=== PATIENT | female | born 1970 | race Caucasian/White ===

== ENCOUNTER 2024-09-21 19:34 | Emergency (ER) | payer MEDICAID ==
[~2024-09-21] VITALS: Ht 165.1 cm; Wt 52.0 kg
[2024-09-21 19:56] VITALS: BP 133/78; PULSE 94; TEMP 96.8; O2SAT 99
[2024-09-21 21:15] LABS: BILIRUBIN,URINE NEGATIVE (Neg); CLARITY,URINE CLEAR (Clear); COLOR,URINE YELLOW (Yellow); GLUCOSE, URINE NEGATIVE (Neg); KETONES,URINE TRACE mg/dl (Neg); LEUKOCYTE ESTERASE ,URINE NEGATIVE (Neg); NITRITES, URINE NEGATIVE (Neg); OCCULT BLOOD,URINE NEGATIVE (Neg); PROTEIN,URINE NEGATIVE (Neg); UA COLLECTION TYPE CLN CATCH MIDSTREAM; UROBILINOGEN,URINE 0.2 E.U/dL (0.2-1.0)
[2024-09-21 21:17] LABS: URINE HCG NEGATIVE (NEG)
[2024-09-21] MEDS ORDERED: iohexol 300mg/ml 100ml inj. ONE (22:01)
[2024-09-21 23:08] LABS: BASOPHILS # (AUTO) 0.1 X10'3 (0-0.2); EOSINOPHILS # (AUTO) 0.3 X10'3 (0-0.9); HEMOGLOBIN 14.8 g/dl (12.0-16.0); LYMPHOCYTES # (AUTO) 2.3 X10'3 (1.1-4.8); MEAN PLATELET VOLUME 8.3 FL (7.4-10.4)
[2024-09-21 23:09] LABS: EOSINOPHILS % (AUTO) 3.5 % (0-6); HEMATOCRIT 43.3 % (35.0-45.0); LYMPHOCYTES % (AUTO) 25.3 % (21-51); MEAN CORPUSCULAR HEMOGLOBIN 30.3 PG (27.0-31.0); MEAN CORPUSCULAR HGB CONC 34.2 g/dL (33.0-36.5); MEAN CORPUSCULAR VOLUME 88.6 FL (78-98); MONOCYTES # (AUTO) 0.5 X10'3 (0-0.9); NEUTROPHILS # (AUTO) 5.8 X10'3 (1.8-7.7); NEUTROPHILS % (AUTO) 64.2 % (42-75); RED BLOOD COUNT 4.89 X10'6 (4.20-5.60); RED CELL DISTRIBUTION WIDTH 14.1 % (11.5-14.5); WHITE BLOOD COUNT 9.1 X10'3 (4.5-11.0)
[2024-09-21 23:27] LABS: PLATELET COUNT 336 X10'3 (140-440)
--- NOTE | 2024-09-21 23:27 | RADIOLOGY REPORT ---
CT OF THE ABDOMEN AND PELVIS WITH CONTRAST. HISTORY: abd pain, rule out bowel obstruction COMPARISON: None TECHNIQUE: Helical axial CT images of the abdomen and pelvis were obtained with intravenous contrast. Multiplanar reformats. One or more of the following radiation dose reduction techniques were used fo r this examination: automated exposure control, adjustment of the mA and/or kV according to patient s ize, use of iterative reconstruction technique. FINDINGS: Mild dependent atelectasis in the imaged lung bases. Liver: Focal hypoattenuation near the falciform ligament may represent an area of fatty infiltration. No other discrete, sizable lesions as visualized. Gallbladder and biliary system: Gallbladder is distended. No sizable, radiopaque cholelithiasis. No b iliary ductal dilatation noted. Pancreas: Negative. Spleen: Negative. Adrenal Glands: Negative. Kidneys and collecting system: No hydroureteronephrosis or sizable, obstructing urinary tract calculi identified. Retroperitoneum: No evidence of abdominal aortic aneurysm. Lymph nodes: No discretely enlarged lymph nodes identified. Bowel: No evidence of small-bowel obstruction at this time. Normal caliber appendix. Moderate volume stool throughout the colon and rectum. No free intraperitoneal air or fluid identified. Pelvis: No sizable bladder calculus. Question mild thickening versus underdistention of the urinary b ladder. Osseous structures: No destructive osseous lesions identified. Degenerative changes of the lower lumb ar spine. IMPRESSION: No evidence of bowel obstruction at this time. Mild thickening versus underdistention of the urinary bladder. Please correlate to exclude UTI/cysti tis. A few other ancillary findings as above.
[2024-09-21 23:37] LABS: ALANINE AMINOTRANSFERASE 21 U/L (12-78); ALBUMIN 3.3 G/DL (3.4-5.0); ALKALINE PHOSPHATASE 88 IU/L (46-116); ANION GAP 10 (8-16); ASPARTATE AMINO TRANSFERASE 18 U/L (10-37); BILIRUBIN,TOTAL 0.3 MG/DL (0.1-1.0); BLOOD UREA NITROGEN 9 MG/DL (7-18); BUN/CREATININE RATIO 10.8 (10.0-20.0); CALCIUM 8.5 MG/DL (8.5-10.1); CHLORIDE 102 MMOL/L (99-107); CREATININE 0.83 MG/DL (0.40-0.90); GLUCOSE 98 MG/DL (70-104); LIPASE 33 U/L (16-77); POTASSIUM 3.8 MMOL/L (3.5-5.1); SODIUM 139 MMOL/L (135-145); TOTAL CARBON DIOXIDE 26.9 MMOL/L (24-32); TOTAL PROTEIN 6.6 G/DL (6.4-8.2); eCRCL 63 ML/MIN; eGFR 71 ML/MIN
--- NOTE | 2024-09-21 23:47 | Physician Documentation ---
History of Present Illness ~ Chief Complaint: Abdominal Pain Stated Complaint: ABDOMINAL PAIN Time Seen by MD: 21:52 Mode of Arrival: Ambulatory HPI Patient is seen today with complaints of generalized abdominal discomfort and pain along with being constipated for two weeks. Patient states she did have a CT scan one week ago where she claims she was told that she had a bowel ob struction. Patient states she has been trying MiraLax at home without any significant success. Patient states she has had some liquid bowel movements including this morning and yesterday but denies any passage of solid stool for a couple of weeks. She denies any fevers or chills or chest pain or shortness of breath or diarrhea. She has no other concern or complaint at this time. Patient denies any opiate use. Medication Reconciliation Allergies: Coded Allergies: No Known Allergies (Unverified , 09/21/24) Review of Systems Constitutional: Denies: chills, fever, weakness Eyes: Denies: pain, blurred vision ENT: Denies: ear pain, nose pain, throat pain, mouth pain Respiratory: Denies: cough, shortness of breath Cardiovascular: Denies: chest pain, palpitations Gastrointestinal: Denies: abdominal pain, nausea, vomiting Genitourinary: Denies: burning, dysuria Female Genitalia: Denies: vaginal discharge, pelvic pain Neurological: Denies: headache, dizziness Musculoskeletal: Denies: pain, swelling Integumentary: Denies: rash, lesions Allergic/Immunologic: Denies: hives, itching Hematologic/Lymphatic: Denies: no symptoms reported Psychiatric: Denies: depression, anxiety Physical Exam Vital Signs: Temperature: 96.8, Source: Temporal, Heart Rate: 94, Respiratory Rate: 16, BP: 133/78, Pulse Oximetry: 99, Weight: 51.950 Physical Exam General: Awake and Alert, no acute distress. HEENT: Conjunctiva pink, Sclera clear, Mucus Membranes moist. Neck: Supple without masses and tenderness. Resp: Unlabored. Lungs clear to auscultation bilaterally. Heart: Regular Rate and rhythm, normal S1 and S2 without murmur, rub or gallop. Abdomen: Soft and non distended no organomegaly, patient has mild diffuse tenderness of the abdomen with more significant tenderness to palpation in the right upper quadrant. I do not appreciate any guarding or rebound tenderness. Patient does have normoactive bowel sounds in all quadrants. Extremities: No cyanosis,clubbing or edema. Skin: Warm and Dry. Progress Results/Orders Results/Orders Orders - MCCLELLANDORINA Ramires PAC Saline Lock (09/21/24 ) Procalcitonin (09/21/24 21:52) Ct Abdomen Pelvis (09/21/24 22:00) Polyethylene Glycol 3350 Pkt (Miralax Pa (09/21/24 23:37) Sennosides/Docusate Sodium Tab (Senna-S (09/21/24 23:37) Completed Orders - DORINA MCCLELLAN PAC Lacticsepsis (09/21/24 21:52) Ct Abdomen Pelvis (09/21/24 22:00) Iohexol 300mg/Ml 100ml Inj. (Omnipaque-3 (09/21/24 22:01) Vital Signs 09/21/24 09/21/24 19:56 23:02 Temp 96.8 Pulse 94 Resp 15 16 B/P (MAP) 133/78 Pulse Ox 99 Laboratory Tests Test 09/21/24 20:55 09/21/24 22:53 Urine Specimen Description Cln catch midstream Urine Color Yellow Urine Clarity Clear Urine pH 6.0 Urine Specific [place] 1.020 Urine Protein Negative Urine Glucose (UA) Negative Urine Ketones Trace H Urine Occult Blood Negative Urine Nitrite Negative Urine Bilirubin Negative Urine Urobilinogen 0.2 Urine Leukocyte Esterase Negative Urine Culture Indicated Not ind Volume Urine Centrifuged 10 ml Urine HCG, Qualitative Negative Urine Comment White Blood Count 9.1 Red Blood Count 4.89 Hemoglobin 14.8 Hematocrit 43.3 Mean Corpuscular Volume 88.6 Mean Corpuscular Hemoglobin 30.3 Mean Corpuscular Hemoglobin Concent 34.2 Red Cell Distribution Width 14.1 Platelet Count 336 Mean Platelet Volume 8.3 Neutrophils (%) (Auto) 64.2 Lymphocytes (%) (Auto) 25.3 Monocytes (%) (Auto) 6.0 Eosinophils (%) (Auto) 3.5 Basophils (%) (Auto) 1.0 Neutrophils # (Auto) 5.8 Lymphocytes # (Auto) 2.3 Monocytes # (Auto) 0.5 Eosinophils # (Auto) 0.3 Basophils # (Auto) 0.1 CBC Comment Sodium Level 139 Potassium Level 3.8 Chloride Level 102 Carbon Dioxide Level 26.9 Anion Gap 10 Blood Urea Nitrogen 9 Creatinine 0.83 Estimated GFR/1.73 m2 71 BUN/Creatinine Ratio 10.8 Glucose Level 98 Lactic Acid Level 0.9 Calcium Level 8.5 Total Bilirubin 0.3 Aspartate Amino Transf (AST/SGOT) 18 Alanine Aminotransferase (ALT/SGPT) 21 Alkaline Phosphatase 88 Total Protein 6.6 Albumin 3.3 L Globulin 3.3 Albumin/Globulin Ratio 1.0 L Lipase 33 Chemistry Comments EKG/XRAY/CT/US/VASC/MRI CT : Impression CAT SCAN Patient: CHE ODEN Medical Record: [id number] [facility] : 1970, Age: 54 Sex: Female Location: ER Patient Status: [facility] ER Service Date/Time: 09/21/242199 Ordering Physician: DORINA MCCLELLAN PAC Exam: CT ABDOMEN PEL VIS CT OF THE ABDOMEN AND PELVIS WITH CONTRAST. HISTORY: abd pain, rule out bowel obstruction COMPARISON: None TECHNIQUE: Helical axial CT images of the abdomen and pelvis were obtained with intravenous contrast. Multiplanar reformats. One or more of the following radiation dose reduction techniques were used for this examination: automated exposure control, adjustment of the mA and/or kV according to patient size, use of iterative reconstruction technique. FINDINGS: Mild dependent atelectasis in the imaged lung bases. Liver: Focal hypoattenuation near the falciform ligament may represent an area of fatty infiltration. No other discrete, sizable lesions as visualized. Gallbladder and biliary system: Gallbladder is distended. No sizable, radiopaque cholelithiasis. No biliary ductal dilatation noted. Pancreas: Negative. Spleen: Negative. Adrenal Glands: Negative. Kidneys and collecting system: No hydroureteronephrosis or sizable, obstructing urinary tract calculi identified. Retroperitoneum: No evidence of abdominal aortic aneurysm. Lymph nodes: No discretely enlarged lymph nodes identified. Bowel: No evidence of small-bowel obstruction at this time. Normal caliber appendix. Moderate volume stool throughout the colon and rectum. No free intraperitoneal air or fluid identified. Pelvis: No sizable bladder calculus. Question mild thickening versus underdisten tion of the urinary bladder. Osseous structures: No destructive osseous lesions identified. Degenerative changes of the lower lumbar spine. IMPRESSION: No evidence of bowel obstruction at this time. Mild thickening versus underdistention of the urinary bladder. Please correlate to exclude UTI/cystitis. A few other ancillary findings as above. Electronically Signed by:ERICKSON RICH MD Date & Time: 09/21/242323 Dictated by: ERICKSON RICH MD Dictation date and time: 09/21/242323 Primary Care Provider: NO PRIMARY CARE PROVIDER cc: DORINA MCCLELLAN PAC ~ Medical Decision Making Findings Patient is seen today with complaints of generalized abdominal discomfort and pain along with being constipated for two weeks. Patient states she did have a CT scan one week ago where she claims she was told that she had a bowel obstruction. Patient states she has been trying MiraLax at home without any si gnificant success. Patient states she has had some liquid bowel movements including this morning and yesterday but denies any passage of solid stool for a couple of weeks. She denies any fevers or chills or chest pain or shortness of breath or diarrhea. She has no other concern or complaint at this time. Patient states she has mainly been taking stool softener to try to help with her constipation currently. Patient denies any opiate use. Patient did have CT scan of abdomen that showed no sign of bowel obstruction with a moderate amount of stool in the colon and rectum. Patient's labs returned largely unremarkable. Patient was given dose of senna x2 tablets and MiraLax x2 doses in the ED tonight. Prescription of MiraLax and senna and enema sent to patient's pharmacy to be taken as directed. Patient voiced understanding. Shared decision-making utilized today. Departure Disposition: HOME / SELF CARE / HOMELESS Impression: Primary Impression: Abdominal pain Qualified Codes: R10.84 - Generalized abdominal pain Additional Impression: Constipation Qualified Codes: K59.00 - Constipation, unspecified Condition: Improved Discharge Instructions: Constipation, Adult, [id number] Additional Instructions: Patient did have CT scan of abdomen that showed no sign of bowel obstruction with a moderate amount of stool in the colon and rectum. Patient's labs returned largely unremarkable. Patient was given dose of senna x2 tablets and MiraLax x2 doses in the ED tonight. Prescription of MiraLax and senna and enema sent to patient's pharmacy to be taken as directed. Patient voiced understanding. Shared decision-making utilized today. Referrals: NO PRIMARY CARE PROVIDER (PCP) Prescriptions Sennosides/Docusate Sodium (Senna Plus 8.6-50 mg Tablet) 8.6 Mg-50 Mg Tablet 2 TAB PO TID, #100 TAB 0 Refills Prov: DORINA MCCLELLAN 09/21/24 Polyethylene Glycol 3350 (Miralax) 17 Gram/Dose Powder 17 GM PO BID for constipation, #527 GM 0 Refills dissolve in water Prov: DORINA MCCLELLAN 09/21/24 Na Phos,M-B/Na Phos,Di-Ba (Enema Tsroe-Gi-Fil) 19 Gram-7 Gram/118 Ml Enema 118 ML RC DAILY for 3 Days, #354 ML 0 Refills DIRECTED Prov: DORINA MCCLELLAN 09/21/24 Signature Scribe Signature: No scribe Attestation: No scribe DORINA MCCLELLAN Sep 21, 2024 23:47
[2024-09-21] MEDS: ketorolac trometh 30MG/ML vial 30 MG/ML VIAL IV STA (23:51)
[2024-09-21] MEDS: sennosides/docusate sodium tablet PO STA (23:52)
[2024-09-21] MEDS ORDERED: POLY119P2 PO (23:52)
[2024-09-21] MEDS: acetaminophen 1,000mg/100ml IV 100 ML IV STA (23:52)
[2024-09-21] MEDS: polyethylene glycol 3350 17gm powd pack PO STA (23:52)
[2024-09-21] MEDS ORDERED: NA P133E37 RC (23:52)
[2024-09-21] MEDS ORDERED: SENN-302 PO (23:52)
[2024-09-21] MEDS: metoclopramide 5 mg/ml inj IV STA (23:52)
[2024-09-22 00:12] VITALS: RESP 18
== END 2024-09-22 00:15 | disposition home or self-care (01) ==
LOC: ER 19:34
DX: R10.11 Right upper quadrant pain (principal); K59.00 Constipation, unspecified
CPT/HCPCS: 36415; 74177; 80053; 81003; 81025; 83605; 83690; 84145; 85025; 96365; 96375; 99285; J0131; J1885; J2765; Q9967